=== PATIENT | male | born 1940 | race Caucasian/White ===

== ENCOUNTER 2016-09-29 13:18 | Emergency (ER) | payer MEDICARE ==
[~2016-09-29] VITALS: Ht 182.9 cm; Wt 81.6 kg
[2016-09-29 13:31] VITALS: BP 104/63
[2016-09-29 14:02] LABS: BASOPHILS % (AUTO) 0.3 % (0.0-2.0); MEAN CORPUSCULAR HEMOGLOBIN 29.7 PG (27.0-31.0); MEAN CORPUSCULAR HGB CONC 32.4 G/DL (32.0-36.0); MEAN CORPUSCULAR VOLUME 92 FL (80-99); MEAN PLATELET VOLUME 8.4 FL (6.5-10.1); MONOCYTES % (AUTO) 3.6 % (1.0-10.0); NEUTROPHILS % (AUTO) 80.2 % (45.0-75.0); PLATELET COUNT 275 K/UL (150-450); RED BLOOD COUNT 4.75 M/UL (4.70-6.10); RED CELL DISTRIBUTION WIDTH 14.5 % (11.6-14.8); WHITE BLOOD COUNT 15.7 K/UL (4.8-10.8)
[2016-09-29 14:20] LABS: TROPONIN I < 0.30 ng/mL (<=0.30)
[2016-09-29 14:21] LABS: ALANINE AMINOTRANSFERASE 5 U/L (3-41); ALBUMIN/GLOBULIN RATIO 1.4 (1.0-2.7); ANION GAP 17 (5-15); ASPARTATE AMINO TRANSFERASE 12 U/L (5-40); CALCIUM 10.4 mg/dL (8.6-10.2); CARBON DIOXIDE 25 mEQ/L (20-30); CHLORIDE 95 mEQ/L (98-107); CREATININE 1.2 mg/dL (0.7-1.2); HEMOLYSIS 20; SODIUM 137 mEQ/L (135-145); TOTAL PROTEIN 7.3 g/dL (6.6-8.7)
[2016-09-29 14:31] LABS: CKMB 1.7 ng/mL (< 6.7)
--- NOTE | 2016-09-29 14:49 | Emergency Room Report ---
History of Present Illness General Chief Complaint: Syncope Source: Patient, Significant Other, Medical Record Present Illness HPI 75 YOM BIBEMS from rehab facility after witnessed syncopal event. Patient was allegedly straining for BM and "passed out" but didnt suffer any resulting trauma. Had 1 episode of vomiting thereafter. Currently asymptomatic. Denies precipitating chest pain, SOB, palpitations, abd pain, urinary complaints. Per , patient had similar episode recently, was hospitalized at [facility]. had a "full workup" but no discernible cause was found. Allergies: Coded Allergies: No Known Allergies (Unverified , 09/29/16) Patient History Past Medical History: HTN Past Surgical History: none Pertinent Family History: none Social History: Denies: alcohol use, drug use, smoking Immunizations: UTD Reviewed Nursing Documentation: PMH: Agreed, PSxH: Agreed Nursing Documentation-PMH Past Medical History: No History, Except For Hx Hypertension: Yes Hx Diabetes: Yes Hx Neurological Problems: Yes - dementia Review of Systems All Other Systems: negative except mentioned in HPI Physical Exam Vital Signs Date Time Temp Pulse Resp B/P Pulse Ox O2 Delivery O2 Flow Rate FiO2 09/29/16 13:13 80 18 114/72 98 Room Air Sp02 EP Interpretation: reviewed, normal General Appearance: normal inspection, well appearing, no apparent distress, alert, GCS 15, non-toxic Head: normocephalic, atraumatic Eyes: bilateral eye EOMI, bilateral eye PERRL ENT: normal ENT inspection, hearing grossly normal, normal voice Neck: normal inspection, full range of motion, supple, no bony tend Respiratory: normal inspection, lungs clear, normal breath sounds, no respiratory distress, no retraction, no wheezing Cardiovascular #1: regular rate, rhythm, no edema Gastrointestinal: normal inspection, normal bowel sounds, non tender, soft, no guarding, no hernia Genitourinary: no CVA tenderness Musculoskeletal: normal inspection, back normal, normal range of motion, Yung' s Sign negative Neurologic: normal inspection, alert, oriented x3, responsive, end polisher III-XII nml as tested, motor strength/tone normal, speech normal Psychiatric: normal inspection, judgement/insight normal, mood/affect normal Skin: normal inspection, normal color, no rash Lymphatic: normal inspection Medical Decision Making Diagnostic Impression: Primary Impression: Syncope Qualified Codes: R55 - Syncope and collapse ER Course ?Syncope. Possibly vasovagal. VSS. Afebrile. ECG is NSR, no ischemia. No arrhtymia on monitor. Patient remains alert and oriented in ED. No complaints. Labs: Leuks elevated. K slightly elevated 0.1 over normal. UA no UTI CXR: No acute process In multiple conversations with patient and , in shared decision-making, patient is very strongly against admission. He prefers to be discharged back to rehab facility where he can finish his rehab so he can eventually return home. At time of discharge and completion of my shift, UA was pending patient providing a urine sample. Only lab abnormality was elevated leuks; no obvious source - CXR negative for PNA, abdomen soft, ND/NT, unlikely meningitis given well appearance. Patient did have episode of vomiting earlier today. Shared decision to tx empirically with BID Cipro - first dose given in ED with RX provided. 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 EKG Diagnostic Results Rate: normal Rhythm: NSR ST Segments: no acute changes ASA given to the pt in ED: No Rhythm Strip Diag. Results EP Interpretation: yes Rate: 65 Rhythm: NSR, no PVC's, no ectopy Chest X-Ray Diagnostic Results EP Interpretation: Yes Findings: no consolidation, no effusion, no pneumothorax, no acute cardiopulmonary disease Number of Views: 1 Last Vital Signs Date Time Temp Pulse Resp B/P Pulse Ox O2 Delivery O2 Flow Rate FiO2 09/29/16 13:31 76 18 104/63 98 Room Air Status: improved Disposition: XFER [facility] Scripts Ciprofloxacin Hcl* (CIPROFLOXACIN HCL*) 500 Mg Tablet 500 MG ORAL EVERY 12 HOURS for 7 Days, #13 TAB 0 Refills Prov: JAY OLIVEIRA M.D. 09/29/16 Referrals: Landen Sanabria MD (PCP) JAY OLIVEIRA M.D. Sep 29, 2016 14:49
[2016-09-29] MEDS ORDERED: CIPROFLOXACIN500 M2 ORAL (15:07)
[2016-09-29] MEDS ORDERED: Ciprofloxacin 500mg tab ORAL ONE (15:15)
[2016-09-29 15:50] VITALS: BP 109/77
[2016-09-29 17:01] LABS: APPEARANCE,URINE CLEAR; KETONES,URINE NEGATIVE (NEGATIVE); LEUKOCYTE ESTERASE ,URINE 1+ (NEGATIVE); NITRITE,URINE NEGATIVE (NEGATIVE); PH,URINE 5 (4.5-8.0); PROTEIN,URINE NEGATIVE (NEGATIVE); UROBILINOGEN,URINE NORMAL MG/DL (0.0-1.0)
[2016-09-29 17:17] LABS: BACTERIA,URINE FEW /HPF; RBC,URINE 0-2 /HPF (0 - 0); WBC,URINE 0-2 /HPF (0 - 0)
[2016-09-29] MEDS ORDERED: DuoNeb 0.5-3(2.5)mg/3ml neb HHN PRN (17:30)
[2016-09-29] MEDS ORDERED: Mylanta II UD 30ml ORAL PRN (17:30)
[2016-09-29] MEDS ORDERED: Nitroglycerin Subl 0.4mg tab (Bottle Of 25) SL PRN (17:30)
[2016-09-29] MEDS ORDERED: Miralax 17gm pkt ORAL PRN (17:30)
[2016-09-29] MEDS ORDERED: LORazepam Inj 2mg/ml 1ml IV PRN (17:30)
[2016-09-29] MEDS ORDERED: Morphine Sulfate 2mg/ml Inj IVP PRN (17:30)
[2016-09-29 18:00] VITALS: BP 117/76
[2016-09-29 18:39] VITALS: BP 117/76
[2016-09-29] MEDS ORDERED: Heparin 5000 units/ml inj SUBQ SCH (21:00)
--- NOTE | 2016-09-29 22:33 | Consultation ---
History of Present Illness General Date patient seen: Sep 29, 2016 Chief Complaint: Syncope nausea and vomiting Reason for Consultation: Dr. Sanabria Present Illness HPI 76 yo gentleman with pmhx HTN presenting to [facility] ER co syncopal episode x 1 at correction and nausea and an episode of vomiting earlier in the day. I was asked to consult on this case to examine the patients respiratory and other related internal medicine matters, however the patient appears to be extremely non compliant with admission for this syncopal episode. 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 The patient gives a history in which he cannot recall the events that lead to a syncopal episode, though the patient denies any chest pain or shortness of breath precipitating the syncopal event. Patient denies any recent headache chills or fever, no neck stiffness is reported. The emergency room doctor has elected to supply the patient with a dose of antibiotics namely levaquin to address the patients complaint of nausea and vomiting. I have discussed this case with the patients primary care doctor, and will follow up as outpatient with discussion with urinalysis results when made available to further investigate the patients overall health and rule out pathogenic mechanisms. Upon physical exam patient does not exhibit nuchal rigidity or neck stiffness, lungs are clear to auscultation and the patient is awake and alert and oriented x 3 and does not display any focality. Allergies: Coded Allergies: No Known Allergies (Unverified , 09/29/16) Medication History Scheduled Ciprofloxacin Hcl* (Ciprofloxacin Hcl*), 500 MG ORAL EVERY 12 HOURS Patient History Healthcare decision maker Resuscitation status Advanced Directive on File No Past Medical/Surgical History Past Medical/Surgical History: (1) Syncope Review of Systems Constitutional: Reports: weakness Neurological: Reports: syncope Physical Exam General Appearance: no apparent distress Lines, tubes and drains: peripheral HEENT: normocephalic, atraumatic, PERRL Neck: non-tender, normal alignment, supple, normal inspection Respiratory/Chest: chest wall non-tender, lungs clear, normal breath sounds, no respiratory distress Breasts: no masses Cardiovascular/Chest: normal peripheral pulses, normal rate, regular rhythm, no JVD Abdomen: normal bowel sounds, non tender, soft, no organomegaly, no mass Genitourinary/Rectal: normal genital exam, normal rectal exam Extremities: normal range of motion, non-tender, normal inspection, no calf tenderness Skin Exam: normal pigmentation, warm/dry Neurologic: product lister II-XII grossly normal, no motor/sensory deficits Last 24 Hour Vital Signs Date Time Temp Pulse Resp B/P Pulse Ox O2 Delivery O2 Flow Rate FiO2 09/29/16 19:44 81 20 Room Air 09/29/16 18:39 81 20 117/76 98 Room Air 09/29/16 18:00 81 20 117/76 98 Room Air 09/29/16 15:50 78 20 109/77 97 Room Air 09/29/16 13:31 76 18 104/63 98 Room Air 09/29/16 13:13 80 18 114/72 98 Room Air Laboratory Tests Test 09/29/16 13:40 09/29/16 16:32 White Blood Count 15.7 K/UL (4.8-10.8) H Red Blood Count 4.75 M/UL (4.70-6.10) Hemoglobin 14.1 G/DL (14.2-18.0) L Hematocrit 43.5 % (42.0-52.0) Mean Corpuscular Volume 92 FL (80-99) Mean Corpuscular Hemoglobin 29.7 PG (27.0-31.0) Mean Corpuscular Hemoglobin Concent 32.4 G/DL (32.0-36.0) Red Cell Distribution Width 14.5 % (11.6-14.8) Platelet Count 275 K/UL (150-450) Mean Platelet Volume 8.4 FL (6.5-10.1) Neutrophils (%) (Auto) 80.2 % (45.0-75.0) H Lymphocytes (%) (Auto) 14.0 % (20.0-45.0) L Monocytes (%) (Auto) 3.6 % (1.0-10.0) Eosinophils (%) (Auto) 2.0 % (0.0-3.0) Basophils (%) (Auto) 0.3 % (0.0-2.0) Sodium Level 137 mEQ/L (135-145) Potassium Level 5.0 mEQ/L (3.4-4.9) H Chloride Level 95 mEQ/L (98-107) L Carbon Dioxide Level 25 mEQ/L (20-30) Anion Gap 17 (5-15) H Blood Urea Nitrogen 28 mg/dL (7-23) H Creatinine 1.2 mg/dL (0.7-1.2) Estimat Glomerular Filtration Rate mL/min (>60) Glucose Level 160 mg/dL (74-106) H Calcium Level 10.4 mg/dL (8.6-10.2) H Total Bilirubin 0.4 mg/dL (0.0-1.2) Aspartate Amino Transf (AST/SGOT) 12 U/L (5-40) Alanine Aminotransferase (ALT/SGPT) 5 U/L (3-41) Alkaline Phosphatase 100 U/L (40-129) Total Creatine Kinase 43 U/L (38-174) Creatine Kinase MB 1.7 ng/mL (< 6.7) Creatine Kinase MB Relative Index 3.9 Troponin I < 0.30 ng/mL (<=0.30) Total Protein 7.3 g/dL (6.6-8.7) Albumin 4.3 g/dL (3.5-5.2) Globulin 3.0 g/dL Albumin/Globulin Ratio 1.4 (1.0-2.7) Urine Color Pale yellow Urine Appearance Clear Urine pH 5 (4.5-8.0) Urine Specific [employer] 1.015 (1.005-1.035) Urine Protein Negative (NEGATIVE) Urine Glucose (UA) Negative (NEGATIVE) Urine Ketones Negative (NEGATIVE) Urine Occult Blood Negative (NEGATIVE) Urine Nitrite Negative (NEGATIVE) Urine Bilirubin Negative (NEGATIVE) Urine Urobilinogen Normal MG/DL (0.0-1.0) Urine Leukocyte Esterase 1+ (NEGATIVE) H Urine RBC 0-2 /HPF (0 - 0) H Urine WBC 0-2 /HPF (0 - 0) Urine Squamous Epithelial Cells None /LPF (NONE/OCC) Urine Bacteria Few /HPF (NONE) Height (Feet): 6 Weight (Pounds): 180 Medications Current Medications Medications (Trade) Dose Ordered Sig/Mathieu Route PRN Reason Start Time Stop Time Status Last Admin Dose Admin Acetaminophen (Tylenol) 650 mg Q4H PRN ORAL fever 09/29/16 17:30 10/29/16 17:29 Al Hydroxide/Mg Hydroxide (Mylanta II) 30 ml Q6H PRN ORAL dyspepsia 09/29/16 17:30 10/29/16 17:29 Albuterol/ Ipratropium (DuoNeb 0.5-3(2.5)mg/3ml) 3 ml Q4H PRN HHN Shortness of Breath 09/29/16 17:30 10/04/16 17:29 Clonidine HCl (Catapres) 0.1 mg Q4H PRN ORAL SBP > 160 09/29/16 17:30 10/29/16 17:29 Dextrose (Dextrose 50%) STAT PRN IV Hypoglycemia 09/29/16 17:30 10/29/16 17:29 Heparin Sodium (Porcine) (Heparin 5000 units/ml) 5,000 units EVERY 12 HOURS SUBQ 09/29/16 21:00 10/29/16 20:59 Lorazepam (Ativan 2mg/ml 1ml) 0.5 mg Q4H PRN IV For Anxiety 09/29/16 17:30 10/06/16 17:29 Morphine Sulfate (Morphine Sulfate) 1 mg Q4H PRN IVP For Pain 7-10 09/29/16 17:30 10/06/16 17:29 Nitroglycerin (Ntg) 0.4 mg Q5M X 3 DOSES PRN SL Prn Chest Pain 09/29/16 17:30 10/29/16 17:29 Ondansetron HCl (Zofran) 4 mg Q6H PRN IVP Nausea & Vomiting 09/29/16 17:30 10/29/16 17:29 Polyethylene Glycol (Miralax) 17 gm HSPRN PRN ORAL Constipation 09/29/16 17:30 10/29/16 17:29 Temazepam (Restoril) 15 mg HSPRN PRN ORAL Insomnia 09/29/16 17:30 10/06/16 17:29 Assessment/Plan Status: stable, progressing Assessment/Plan Assessment Syncopal episode acute Hx HTN Denies neurological disease Denies cardiovascular events or arrythymia in past Plan EKG and diagnostics unremarkable Physical exam unremarkable Neurologic exam unremarkable Supplemental oxygen Patient given levaquin in ER Patient refuses further evaluation in patient basis DC to snf as patient and family prefer D/C with patient primary care provider Will follow up with significant laboratory studies when made available. D/C risks of non compliance with medical recommendations for further investigation and evaluation of underlying cause of symptoms of syncope with patient however patient prefers to discharge back to SNF to finish rehab remainder. OMAR RAI Sep 29, 2016 22:33
--- NOTE | 2016-10-03 14:06 | Cardiology Report ---
APPROVED REPORT EKG Measurement Heart [id number] Normal sinus rhythm Nonspecific T wave abnormality Abnormal ECG
--- NOTE | 2016-10-26 14:24 | Diagnostic Imaging Report ---
Indication: Chest pain Technique: One view of the chest Comparison: none Findings: Inspiration is suboptimal. There is atelectasis at the left lung base, crowding of the markings at the right lung base. Heart size is grossly normal. Impression: No definite acute process
== END 2016-09-29 18:43 | disposition home or self-care (01) ==
LOC: EDBD 13:18 → EDBEDREQ 13:31 → EMR 14:00 → 4W 14:08 → UNDOADMIN 14:08 → EDBEDREQSVC 14:51 → EDBEDREQ 14:58 → CANBEDREQ 18:44
DX: R55 Syncope and collapse (principal); I10 Essential (primary) hypertension; E11.9 Type 2 diabetes mellitus without complications; F03.90 Unspecified dementia, unspecified severity, without behavioral disturbance, psychotic disturbance, mood disturbance, and anxiety
CPT/HCPCS: 36415; 71010; 80053; 81003; 82550; 82553; 84484; 85025; 93005; 94664; 96374